=== PATIENT | male | born 1970 | race Caucasian/White ===

== ENCOUNTER 2020-08-28 00:12 | Emergency (ER) | payer SELFPAY ==
--- NOTE | ~2020-08-28 | XR_ITS ---
EXAMINATION: XR chest ET placement INDICATION: Respiratory failure TECHNIQUE: Portable AP chest at 0059 hours COMPARISON: None available FINDINGS: Endotracheal tube ends 4.8 cm above the rahul. There are diffuse interstitial and airspace opacities, right greater than left. No pleural effusion or pneumothorax is identified. The cardiomed iastinal silhouette is normal. IMPRESSION: 1. Endotracheal tube 4.8 cm above the rahul. 2. Diffuse lung disease, right greater than left, consistent with pulmonary edema and/or pneumonia. Reviewed, dictated and finalized at location A. IMPRESSION: 1. Endotracheal tube 4.8 cm above the rahul. 2. Diffuse lung disease, right greater than left, consistent with pulmonary lee ma and/or pneumonia.
--- NOTE | ~2020-08-28 | CT_ITS ---
EXAMINATION: CT brain wo con INDICATION: Altered mental status, unresponsive COMPARISON: None TECHNIQUE: Standard unenhanced head CT. The dose-length product (DLP) was 756.67 mGy-cm. The mA was a djusted according to patient size. Iterative reconstruction technique was employed. FINDINGS: There is no intracranial hemorrhage, acute infarction, or abnormal mass lesion. The ventric les are normal. There is no abnormal mass effect or midline shift. The omalley-white matter differentiat ion is normal. The basal cisterns are patent. The orbits are normal. The paranasal sinuses, mastoids and calvarium are normal. IMPRESSION: 1. No acute intracranial abnormality. Reviewed, dictated and finalized at location A.
[2020-08-28 00:15] VITALS: BP 129/87; PULSE 110; RESP 6; TEMP 36.1; O2SAT 97
--- NOTE | 2020-08-28 00:46 | ECG_ITS ---
Measurements Intervals [place] Rate: 89 P: 50 [place]: 165 QRS: 16 QRSD: 97 T: 55 QT: 383 QTc: 467 Interpretive Statements SINUS RHYTHM DELAYED PRECORDIAL R/S TRANSITION BASELINE WANDER- V3 BORDERLINE ECG Electronically Signed On 08-29-2020 10:38:07 CDT by Angel Mckinney D.O.
[2020-08-28 00:50] VITALS: PULSE 86; RESP 18
[2020-08-28] MEDS: PROPOFOL IV EMULSION 100 ML 2.34 MG IV CONT (00:50)
[2020-08-28 01:00] VITALS: PULSE 94; O2SAT 100
--- NOTE | 2020-08-28 01:00 | ED.AMS ---
HPI - Altered Mental Status General Chief Complaint: Altered Mental Status Stated Complaint: STROKE Time Seen by Provider: 08/28/20 00:12 Source: EMS, RN notes reviewed and old records reviewed Mode of arrival: EMS Limitations: altered mental status History of Present Illness HPI narrative: Pt was unconscious at home with pinpoint pupils per EMS. MD complaint: altered mental status Onset (ago): unknown Severity: severe Consistency of symptoms: getting Worse Context: unknown Associated symptoms: other (pt was being Ambu bagged for resp support and then intubated---he was not able to speak.) Treatments prior to arrival: IV fluid and oxygen Related Data Home Medications Medication Instructions Recorded Confirmed alprazolam 0.5 mg PO TID 08/28/20 08/28/20 escitalopram oxalate 20 mg PO DAILY 08/28/20 08/28/20 losartan 25 mg PO DAILY 08/28/20 08/28/20 trazodone 100 mg PO HS 08/28/20 08/28/20 zolpidem 10 mg PO DAILY 08/28/20 08/28/20 Allergies Allergy/AdvReac Type Severity Reaction Status Date / Time Penicillins Allergy Intermediate Verified 08/20/12 15:35 Review of Systems Review of Systems: ROS unobtainable: Yes unobtainable due to endotracheal tube PMFSH Family History Family History Mother Hypertension Family history of diabetes mellitus in first degree relative Father Cerebrovascular accident Family history of coronary artery disease Social History Social History Smoking status: Never smoker Alcohol intake: never Exam Const: Nutritional Appearance: well nourished Limitations: altered mental status and other limitations (pt breathing was agonal) HENMT: Head: normal to inspection Ears: external ears normal and TM's normal bilaterally General nose exam: Normal external nose present and Normal nares present Mouth: Yes moist mucous membranes Teeth and gingiva: dentition normal Throat: posterior oropharynx normal Eyes: Conjunctivae: conjunctivae normal Pupils: Equal, round and reactive pupils present EOM: EOMs intact bilaterally Neck: Neck: normal visual inspection and no lymphadenopathy Chest: Chest palpation & inspection: normal inspection of the chest Resp: Effort & Inspection: labored, retractions and uses accessory muscles Auscultation: crackles Cardio: Rate: tachycardic GI: GI Palp: Yes Soft to palpation Percussion: Yes normal to percussion Auscultation: normal bowel sounds : Testes: Testes normal Urinary Catheter: Urinary Catheter: patent and draining and urine clear Back/Spine/Pelvis: Cervical Spine: No collar present Skin: General skin exam: normal color Rashes: no rashes Neuro: Other: Pt was paralysed and intubated, therefore unable to assist in Neuro exam Extrem: General: normal to inspection Psych: Thought content: Yes other (AMS.) Course Course Emergency Course: Pt was in a serious condition in the ED. He was intubated and worked up for AMS. He will be transferred to ICU, after speaking with the Shredding Specialist. Reevaluation(s) Date: 08/28/20 Time: 01:33 Vital Signs Vital signs: Vital Signs Temperature 36.1 C L 08/28/20 00:15 Pulse Rate 110 H 08/28/20 00:15 Respiratory Rate 6 L 08/28/20 00:15 Blood Pressure 129/87 08/28/20 00:15 Pulse Oximetry 97 08/28/20 00:15 Temperature 36.1 C L 08/28/20 00:15 Pulse Rate 86 08/28/20 00:50 Respiratory Rate 18 08/28/20 00:50 Blood Pressure 129/87 08/28/20 00:15 Pulse Oximetry 97 08/28/20 00:15 Procedures Intubation Intubation #1: Intubation Date: 08/28/20 Intubation Time: 00:33 Time out performed: Yes sedative: Versed Mg Given: 20 paralytic: Succinylcholine Mg Given: 400 Laryngoscope: James Tube Size (cm): 7.5 Method of Intubation: orotracheal Number of Attempts: 4 Tube Secured Depth (cm)
[2020-08-28 01:27] LABS: Amphetamine Screen Urine Positive (Negative); Barbiturate Screen Urine Negative (Negative); Benzodiazepines Screen Urine Positive (Negative); Cannabinoid Screen Urine Positive (Negative); Cocaine Screen Urine Negative (Negative); Methadone Screen Urine Negative (Negative); Opiate Screen Urine Negative (Negative); Phencyclidine Screen Urine Negative (Negative)
[2020-08-28 01:36] LABS: Base Excess ABG -1.7 mmol/L (0-2); HCO3 ABG 24.8 mmol/L (23-29); PCO2 ABG 48.5 mmHg (35-45); PO2 ABG 193.4 mmHg (80-90); pH ABG 7.33 (7.35-7.45)
[2020-08-28 01:37] LABS: Oxygen Saturation ABG 99.2 % (95-97)
[2020-08-28 01:38] LABS: Device VENTILATOR; Modified Allen's Test Pass; Site Drawn LEFT RADIAL
[2020-08-28 01:39] LABS: Arterial Blood Gas Ventilator rate 14 /MIN
[2020-08-28 01:40] LABS: Arterial Blood Gas PEEP 6 cmH2O
[2020-08-28 01:45] LABS: Arterial Blood Gas Minute Volume 8 LPM; Arterial Blood Gas Tidal Volume 500 ml; Arterial Blood Gas Vent Mode ASSIST CONTROL
[2020-08-28] MEDS: SODIUM CHLORIDE 0.9% IV 1,000 ML 150 ML IV CONT (01:46)
--- NOTE | 2020-08-28 01:50 | PC.NURSE ---
Protocol for RSI intubation started at pt arrival 0015 Pt given these meds per V.O. of Dr Nam : Narcan 2 mg at 0010 and 0020 Versed (total of 30 mg given IO) 5mg at 0017, 0020, 0023, 0027 and 10mg at 0035 Succinylcholine 400 mg total (100 mg at 0018,0019,0022,0024) Vecuronium 35 mg total (5mg at 0025,0028, 0030,0031,0034 and 10mg at 0050). Propofol gtt started p intubation successful. See MAR for further meds.
[2020-08-28 01:55] LABS: Basophils Absolute Auto 0.04 K/mm3 (0.00-0.10); Basophils Percent Auto 0.2 % (0.0-1.0); Eosinophils Absolute Auto 0.37 K/mm3 (0.02-0.50); Hematocrit 45.8 % (40.0-54.0); Hemoglobin 15.4 g/dL (14.0-18.0); Immature Granulocyte Percent A 0.6 % (0.0-0.0); Lymphocytes Absolute Auto 1.78 K/mm3 (1.10-4.50); Lymphocytes Percent Auto 9.8 % (18.0-42.0); Mean Corpuscular HGB Conc 33.6 g/dL (32.0-36.0); Mean Corpuscular Hemoglobin 32.6 pg (27.0-31.0); Monocytes Absolute Auto 0.46 K/mm3 (0.10-0.90); Monocytes Percent Auto 2.5 % (2.0-11.0); Neutrophils Absolute Auto 15.4 K/mm3 (1.7-7.2); Neutrophils Percent Auto 84.9 % (50.0-70.0); Platelet Count Result 257 K/mm3 (150-420); Red Blood Count 4.72 M/mm3 (4.70-6.10); Red Cell Distribution Width 11.8 % (11.6-14.4); White Blood Count 18.1 K/mm3 (4.8-10.8)
--- NOTE | 2020-08-28 01:59 | PC.NURSE ---
Call placed to [facility] for pt transfer. No beds available in [facility] or [facility] Pt accepted at [facility] in [place]. [facility] accepting and ERP spoke c hospitalist Dr Avila accepts, paperwork filled out for transfer. Call placed to [facility] for transfer services.
[2020-08-28] MEDS: hydrALAZINE HCL 20 MG/ML VIAL 10 MG IV PUSH (02:10)
[2020-08-28 02:11] LABS: Alanine Aminotransferase 32 U/L (16-63); Alkaline Phosphatase 87 U/L (46-116); Anion Gap 9 mmol/L (8-16); Aspartate Amino Transferase 23 U/L (15-37); Bilirubin,Total 0.4 mg/dL (0.00-1.00); Blood Urea Nitrogen 11 mg/dL (7-18); Calcium 8.6 mg/dL (8.5-10.1); Carbon Dioxide 30 mmol/L (21-32); Chloride 105 mmol/L (98-108); Estimated CRCL calculation 71 ml/min; Estimated Glomerular Filt Rate > 60; Glucose 194 mg/dL (70-99); Osmolality Calculated 302 mOsm/kg (285-295); Potassium 3.9 mmol/L (3.5-5.1); Sodium 144 mmol/L (136-145); Total Protein 7.4 g/dL (6.4-8.2); Troponin I 10.3 ng/L (0.00-60.4)
[2020-08-28 02:12] LABS: Ethanol < 3 mg/dL (0-6)
--- NOTE | 2020-08-28 02:26 | PC.NURSE ---
Call back from [facility] c bed assignment and # to call for report, [facility] notified for transfer.
[2020-08-28 02:34] VITALS: PULSE 91; O2SAT 100
[2020-08-28 02:37] LABS: SARS-CoV-2 Ag Negative (Negative)
[2020-08-28 02:53] VITALS: BP 160/100; PULSE 90; RESP 20; O2SAT 100
== END 2020-08-28 03:30 | disposition short-term general hospital (02) ==
PROVIDERS: Emergency Provider Emergency Medicine
DX: R41.82 Altered mental status, unspecified (principal); F19.10 Other psychoactive substance abuse, uncomplicated; J18.9 Pneumonia, unspecified organism; Z20.822 Contact with and (suspected) exposure to COVID-19
CPT/HCPCS: 31500; 36415; 36600; 70450; 80053; 80307; 82805; 84484; 85025; 87426; 93005; 96365; 96366; 96368; 96375; 99285; 99291; C9803; J0330; J0360; J0696; J2250; J2310; J2704; J7030